=== PATIENT | male | born 1975 | race Asian ===

== ENCOUNTER 2017-05-10 19:53 | Emergency (ER) | payer BC ==
[~2017-05-10] VITALS: Ht 167.6 cm; Wt 91.6 kg
[2017-05-11 00:47] VITALS: BP 146/90
== END 2017-05-11 00:49 | disposition short-term general hospital (02) ==
LOC: EME 19:53
PROC: 3E0234Z Introduction of Serum, Toxoid and Vaccine into Muscle, Percutaneous Approach (ICD-10-PCS; principal; 2017-05-10)
DX: S05.51XA Penetrating wound with foreign body of right eyeball, initial encounter (principal); H11.31 Conjunctival hemorrhage, right eye; W20.8XXA Other cause of strike by thrown, projected or falling object, initial encounter; Z23 Encounter for immunization; Z72.0 Tobacco use
CPT/HCPCS: 99281; 99285; J3370